=== PATIENT | female | born 1950 | race Caucasian/White ===

== ENCOUNTER 2020-07-02 15:29 | Emergency (ER) | payer OTHER ==
[~2020-07-02] VITALS: Ht 165.1 cm; Wt 59.0 kg
[2020-07-02 15:40] VITALS: Ht 165.1 cm; Wt 59.0 kg
[2020-07-02 16:07] LABS: BASOPHIL % 0.9 % (0-2); PLATELET COUNT 361 x10^3mcL (130-400); RED CELL DISTRIBUTION WIDTH 13.4 % (11.5-14.5)
[2020-07-02 16:19] LABS: CALCIUM 8.4 mg/dL (8.5-10.1); CARBON DIOXIDE 24.8 mmol/L (21-32); CHLORIDE SERUM 103 mmol/L (98-107); CREATININE SERUM 0.7 mg/dL (0.6-1.0); GFR1 > 60 mL/min; GLUCOSE SERUM 140 mg/dL (74-106); POTASSIUM SERUM 4.5 mmol/L (3.5-5.1); SODIUM SERUM 137 mmol/L (136-145)
[2020-07-02 16:32] LABS: ALBUMIN 3.6 g/dL (3.4-5.0); ALKALINE PHOSPHATASE 107 U/L (46-116); ALT/SGPT 50 U/L (14-59); AST/SGOT 30 U/L (15-37); BILIRUBIN TOTAL 0.2 mg/dL (0.20-1.00); C REACTIVE PROTEIN 0.2 mg/dL (<=0.9)
[2020-07-02 16:35] LABS: T3 TOTAL 1.3 ng/mL
[2020-07-02 16:40] LABS: TOTAL PROTEIN, SERUM 3.8 g/dL (6.4-8.2)
[2020-07-02 16:47] LABS: FREE T4 0.9 ng/dL (0.76-1.46); FREE THYROXINE INDEX 2.3 ug/dL (1.4-4.5); T4(THYROXINE) 7.5 ug/dL (4.7-13.3)
[2020-07-02 16:48] LABS: CK-MB 1.4 ng/mL (0-3.6)
[2020-07-02 16:49] LABS: ERYTHROCYTE SED RATE 12 mm/hr (0-30)
[2020-07-02 16:55] LABS: UA SPECIFIC GRAVITY >=1.030 (1.005-1.035); microscopic required? YES; urine erythrocyte NEGATIVE (NEGATIVE)
[2020-07-02 17:54] VITALS: BP 166/90
== END 2020-07-02 17:54 | disposition home or self-care (01) ==
LOC: ED 15:29
PROVIDERS: Specialist
DX: I10 Essential (primary) hypertension (principal); K13.0 Diseases of lips; R22.31 Localized swelling, mass and lump, right upper limb; R22.32 Localized swelling, mass and lump, left upper limb; Z90.710 Acquired absence of both cervix and uterus; Z98.51 Tubal ligation status
CPT/HCPCS: 36600; 84439; J3490; Q0092